=== PATIENT | male | born 1960 | race Caucasian/White ===

== ENCOUNTER 2017-08-28 14:33 | Emergency (ER) | payer OTHER ==
[2017-08-28] MEDS: HYDROCODONE/APAP (5/325) TAB PO (19:50)
[2017-08-28 20:12] LABS: ADD MAN DIFF? NO
[2017-08-28 20:15] LABS: WHITE BLOOD COUNT 6.7 10^3/ul (4.8-10.8)
[2017-08-28 20:15] LABS: BASOPHIL # 0.1 10^3/ul (0.0-0.1); BASOPHILS % 1.2 % (0.0-2.0); EOSINOPHILS # 0.2 10^3/ul (0.0-0.5); EOSINOPHILS % 2.2 % (0.0-7.0); HEMATOCRIT 43.8 % (42.0-52.0); HEMOGLOBIN 15.2 g/dl (14.0-18.0); LYMPHOCYTES # 2.9 10^3/ul (0.8-2.9); MEAN CORPUSCULAR HEMOGLOBIN 29.9 pg (29.0-33.0); MEAN CORPUSCULAR HGB CONC 34.7 g/dl (32.0-37.0); MEAN CORPUSCULAR VOLUME 86.1 fl (82.0-101.0); MEAN PLATELET VOLUME 9.3 fl (7.4-10.4); MONOCYTE # 0.6 10^3/ul (0.3-0.9); MONOCYTES % 8.5 % (0.0-11.0); NEUTROPHILS % 44.5 % (39.0-77.0); PLATELET COUNT 284 10^3/UL (140-415); RED BLOOD COUNT 5.09 10^6/ul (4.70-6.10)
[2017-08-28 20:29] LABS: ADD UMIC NO; UR ASCORBIC ACID NEGATIVE (NEGATIVE); UR BILIRUBIN (Dip) NEGATIVE (NEGATIVE); UR BLOOD (Dip) NEGATIVE (NEGATIVE); UR CLARITY CLEAR (CLEAR); UR COLOR YELLOW (YELLOW); UR GLUCOSE (Dip) 3+ mg/dL (NEGATIVE); UR KETONES (Dip) TRACE mg/dL (NEGATIVE); UR LEUKOCYTE ESTERASE (Dip) NEGATIVE Leu/ul (NEGATIVE); UR NITRITE (Dip) NEGATIVE (NEGATIVE); UR SPECIFIC GRAVITY (Dip) 1.026 (1.003-1.030); UR TOTAL PROTEIN (Dip) NEGATIVE (NEGATIVE); UR UROBILINOGEN (Dip) NEGATIVE (NEGATIVE)
[2017-08-28 20:44] LABS: ALANINE AMINOTRANSFERASE 87 IU/L (13-69); ALBUMIN 4.7 g/dl (3.3-4.9); ALBUMIN/GLOBULIN RATIO 1.34; ALKALINE PHOSPHATASE 119 IU/L (42-121); ANION GAP 15 (8-16); ASPARTATE AMINO TRANSFERASE 59 IU/L (15-46); BILIRUBIN,INDIRECT 0.2 mg/dl (0-1.1); BILIRUBIN,TOTAL 0.2 mg/dl (0.2-1.3); BLOOD UREA NITROGEN 15 mg/dl (7-20); CALCIUM 9.5 mg/dl (8.4-10.2); CARBON DIOXIDE 28 mmol/L (21-31); CHLORIDE 100 mmol/L (97-110); CREATININE 0.75 mg/dl (0.61-1.24); GLUCOSE 198 mg/dl (70-220); LIPASE 93 U/L (23-300); POTASSIUM 3.9 mmol/L (3.5-5.1); SODIUM 139 mmol/L (135-144); TOTAL PROTEIN 8.2 g/dl (6.1-8.1)
== END 2017-08-28 21:01 | disposition home or self-care (01) ==
LOC: FTE 14:33
DX: K80.20 Calculus of gallbladder without cholecystitis without obstruction (principal); I10 Essential (primary) hypertension; E11.9 Type 2 diabetes mellitus without complications
CPT/HCPCS: 36415; 76705; 80053; 81003; 83690; 85025; 99284-25

== ENCOUNTER 2017-10-27 06:31 | Observation (INO) | payer OTHER ==
[2017-10-27] MEDS: SOD CHLORIDE 0.9% 1,000 ML IV (07:00)
[2017-10-27] MEDS: INSULIN ASPART [NOVOLOG] 3 ML PEN SC ×3 (07:25→21:26)
[2017-10-27 07:33] LABS: ANION GAP 17 (8-16); CARBON DIOXIDE 27 mmol/L (21-31); CHLORIDE 101 mmol/L (97-110); GLUCOSE 229 mg/dl (70-220)
[2017-10-27 07:41] LABS: BLOOD UREA NITROGEN 14 mg/dl (7-20); CALCIUM 9.6 mg/dl (8.4-10.2); CREATININE 0.62 mg/dl (0.61-1.24); SODIUM 141 mmol/L (135-144)
[2017-10-27] MEDS ORDERED: ROCURONIUM 50 MG INJ (07:42)
[2017-10-27] MEDS ORDERED: FENTAnyl 50 MCG/ML VIAL (07:42)
[2017-10-27] MEDS ORDERED: PROPOFOL 20 ML (07:42)
[2017-10-27] MEDS ORDERED: SUGAMMADEX SODIUM 200 MG/2 ML VIAL IV (07:43)
[2017-10-27] MEDS ORDERED: ONDANSETRON 4 MG INJ (07:43)
[2017-10-27] MEDS ORDERED: LIDOCAINE 1% (MDV) 20 ML INJ (07:43)
[2017-10-27] MEDS ORDERED: CEFAZOLIN 1 GM INJ ×2 (07:44→08:12)
[2017-10-27] MEDS: CEFAZOLIN 2 GM/50 ML (PMX) 50 ML IVPB (08:00)
[2017-10-27] MEDS ORDERED: SUCCINYLCHOLINE CHLORIDE 100 MG/5 ML SYG IV (08:12)
[2017-10-27] MEDS ORDERED: KETOROLAC 30 MG INJ (08:28)
[2017-10-27] MEDS: BUPIVACAINE 0.25% (MPF) 30 ML INJ (08:39)
[2017-10-27] MEDS: LIDOCAINE 1%/EPI 30 ML INJ (08:40)
[2017-10-27] MEDS ORDERED: MIDAZOLAM 1 MG/ML 2 ML INJ (09:35)
[2017-10-27] MEDS ORDERED: HYDROmorphONE (0.2 MG/ML) 10ML SYG IV ×2 (09:47→10:00)
[2017-10-27] MEDS ORDERED: DIPHENHYDRAMINE 50 MG INJ (09:52)
[2017-10-27] MEDS: DIPHENHYDRAMINE 50 MG INJ IV ×2 (10:00→11:01)
[2017-10-27] MEDS: HYDROmorphONE (0.2 MG/ML) 10ML SYG IV ×5 (10:00→11:17)
[2017-10-27] MEDS: ACETAMINOPHEN 1000MG/100ML IV 100 ML IVPB (10:28)
[2017-10-27] MEDS ORDERED: hydrALAzine 20 MG INJ (10:32)
[2017-10-27] MEDS: hydrALAzine 20 MG INJ IV (10:46)
[2017-10-27] MEDS: ONDANSETRON 4 MG INJ IV (10:46)
[2017-10-27] MEDS: FENTAnyl 50 MCG/ML VIAL IV (11:35)
[2017-10-27] MEDS ORDERED: hydrALAzine 20 MG INJ IV (12:00)
[2017-10-27] MEDS ORDERED: GLUCAGON 1 MG INJ IM (12:30)
[2017-10-27] MEDS ORDERED: DEXTROSE 50% 50 ML SYRINGE IV ×2 (12:30)
[2017-10-27] MEDS ORDERED: GLUCOSE GEL 15 GRAM TUBE PO ×2 (12:30)
[2017-10-27] MEDS ORDERED: GLUCOSE GEL 15 GRAM TUBE BUCCAL (12:30)
[2017-10-27] MEDS ORDERED: ONDANSETRON 4 MG INJ IV (17:00)
[2017-10-27] MEDS ORDERED: morphine 2 MG INJ IV (17:00)
[2017-10-27] MEDS: morphine 2 MG INJ IV (17:05)
[2017-10-28] MEDS: HYDROCODONE/APAP (5/325) TAB PO ×2 (00:47→08:16)
[2017-10-28] MEDS: ACCU-CHEK XX (02:00)
[2017-10-28 05:35] LABS: ADD MAN DIFF? NO; BASOPHIL # 0.1 10^3/ul (0.0-0.1); BASOPHILS % 0.7 % (0.0-2.0); EOSINOPHILS # 0.2 10^3/ul (0.0-0.5); EOSINOPHILS % 1.9 % (0.0-7.0); HEMATOCRIT 38.7 % (42.0-52.0); HEMOGLOBIN 13.6 g/dl (14.0-18.0); LYMPHOCYTES # 2.6 10^3/ul (0.8-2.9); LYMPHOCYTES % 32.1 % (15.0-51.0); MEAN CORPUSCULAR HGB CONC 35.1 g/dl (32.0-37.0); MEAN CORPUSCULAR VOLUME 85.2 fl (82.0-101.0); MEAN PLATELET VOLUME 9.8 fl (7.4-10.4); MONOCYTE # 0.7 10^3/ul (0.3-0.9); MONOCYTES % 8.5 % (0.0-11.0); NEUTROPHIL # 4.6 10^3/ul (1.6-7.5); NEUTROPHILS % 56.6 % (39.0-77.0); PLATELET COUNT 239 10^3/UL (140-415); RED BLOOD COUNT 4.54 10^6/ul (4.70-6.10); RED CELL DISTRIBUTION WIDTH 12.3 % (11.5-14.5)
[2017-10-28 05:56] LABS: HEMOGLOBIN A1C 9.3 % (0-5.9)
[2017-10-28 06:06] LABS: ALANINE AMINOTRANSFERASE 102 IU/L (13-69); ALBUMIN 3.3 g/dl (3.3-4.9); ALKALINE PHOSPHATASE 73 IU/L (42-121); ANION GAP 14 (8-16); ASPARTATE AMINO TRANSFERASE 84 IU/L (15-46); BILIRUBIN,INDIRECT 0.7 mg/dl (0-1.1); BILIRUBIN,TOTAL 0.7 mg/dl (0.2-1.3); BLOOD UREA NITROGEN 15 mg/dl (7-20); CALCIUM 8.5 mg/dl (8.4-10.2); CARBON DIOXIDE 27 mmol/L (21-31); CHLORIDE 102 mmol/L (97-110); CREATININE 0.67 mg/dl (0.61-1.24); GLUCOSE 176 mg/dl (70-220); POTASSIUM 4.4 mmol/L (3.5-5.1); SODIUM 139 mmol/L (135-144); TOTAL PROTEIN 6.3 g/dl (6.1-8.1)
[2017-10-28] MEDS: ENALAPRIL 20 MG TAB PO (08:16)
[2017-10-28] MEDS: metFORMIN 500 MG TAB PO (08:35)
[2017-10-28] MEDS: INSULIN ASPART [NOVOLOG] 3 ML PEN SC ×3 (08:57→17:56)
[2017-10-28] MEDS: LINAGLIPTIN 5 MG TABLET PO (17:59)
== END 2017-10-28 18:15 | disposition home or self-care (01) ==
LOC: SDS 06:31 → REC 12:23 → MS1 13:35
PROVIDERS: Internal Medicine
DX: K80.10 Calculus of gallbladder with chronic cholecystitis without obstruction (principal); E11.9 Type 2 diabetes mellitus without complications; Z79.4 Long term (current) use of insulin; I10 Essential (primary) hypertension; E78.5 Hyperlipidemia, unspecified
CPT/HCPCS: 47562; 80048; 80053; 82962; 83036; 85025; 88304; 99217

== ENCOUNTER → 2017-11-06 | Outpatient (CLI) | payer OTHER | END | disposition home or self-care (01) | LOC: DIB 13:00 | DX: Z02.9 Encounter for administrative examinations, unspecified (principal) ==